=== PATIENT | female | born 1990 | race Caucasian/White ===

== ENCOUNTER → 2018-11-23 | Outpatient (CLI) | payer MEDICAID, OTHER ==
--- NOTE | 2018-11-23 15:14 | Diagnostic Imaging Report ---
INDICATION: survey. TECHNIQUE: Multiple real-time grayscale images were obtained over the gravid uterus. COMPARISON: None FINDINGS: There is a single live fetus in a cephalic presentation. heart rate was recorded at 149 beats per minute. Placenta is anterior. Amniotic fluid volume is normal. Cervical length is 4.8 cm. survey demonstrates kidneys, bladder and stomach to be unremarkable. Brain is unremarkable. There is a four-chamber heart. There is a three-vessel cord with normal insertion. spine is grossly unremarkable. Biometrical measurements are as follows: Biparietal 4.58 cm, age 19 weeks 6 days. Head circumference 16.40 cm, age 19 weeks 1 days. Abdominal circumference 13.99 cm, age 19 weeks 3 days. Femur length 2.95 cm, age 19 weeks 1 days. Sonographic estimate age: 19 weeks 3 days. Sonographic estimated date of delivery: 04/16/2019. Estimated Weight: 282 gm (+/- 41 gm). LMP percentile: 84%. heart rate: 149 beats per minute. number: 1 of 1. IMPRESSION: Single IUP approximately 19 weeks 3 days gestational age. The estimated date of confinement sonographically 04/16/2019. Dictated by: Dictated on workstation # [id number]
== END ==
LOC: RAD 14:02
PROVIDERS: ATTEND Obstetrics & Gynecology
DX: Z36.89 Encounter for other specified antenatal screening (principal); Z3A.19 19 weeks gestation of pregnancy
CPT/HCPCS: 76805

== ENCOUNTER 2019-04-17 14:49 | Outpatient (CLI) | payer OTHER, MEDICAID ==
[~2019-04-17] VITALS: Ht 165.1 cm; Wt 86.2 kg
--- NOTE | 2019-04-17 14:43 | NUR ---
HOLLI CORRIGAN presented to unit from Home with c/o POSSIBLE WATER BREAK. HOLLI CORRIGAN weighed, gowned, voided, and to bed. EFHM and TOCO applied, VS taken. HOLLI CORRIGAN oriented to bed controls, call light, TV, heat, and A/C controls.
[2019-04-17 15:00] VITALS: BP 144/94
--- NOTE | 2019-04-17 15:20 | NUR ---
Dr. Bellamy notified of patient's arrival, complaints, and exam. New orders received.
[2019-04-17] MEDS ORDERED: DIPH25CA79 PO (15:26)
[2019-04-17] MEDS ORDERED: ACET-2267 PO (15:26)
[2019-04-17] MEDS ORDERED: RANI75TA21 PO (15:26)
[2019-04-17] MEDS ORDERED: PREN1TAB79 PO (15:26)
--- NOTE | 2019-04-17 15:37 | NUR ---
Discharge instructions and medications reviewed with patient both written and verbally. Patient verbalizes understanding and questions answered.
--- NOTE | 2019-04-17 15:50 | NUR ---
Patient discharged at this time via ambulation. No signs or symptoms of distress noted.
--- NOTE | 2019-04-20 19:06 | Physician Query-Final Dx ---
Clinic Account Progress/Dx Physician Query: Please give diagnosis Date of Service Apr 17, 2019 at 14:49 RUI ORTEGA Apr 20, 2019 19:06
[2019-04-20] MEDS ORDERED: FERR325T18 PO (19:11)
[2019-04-20] MEDS ORDERED: IBUP-844 PO (19:11)
[2019-04-20] MEDS ORDERED: ACET-77 PO (19:11)
== END 2019-04-17 15:50 | disposition home or self-care (01) ==
LOC: WSo 14:49 → LDRP 14:49 → WSo 15:50
PROVIDERS: ATTEND Obstetrics & Gynecology
DX: O41.93X0 Disorder of amniotic fluid and membranes, unspecified, third trimester, not applicable or unspecified (principal); Z3A.39 39 weeks gestation of pregnancy
CPT/HCPCS: 99214

== ENCOUNTER 2019-04-19 09:53 | Outpatient (CLI) | payer OTHER, MEDICAID ==
[~2019-04-19] VITALS: Ht 165.1 cm; Wt 85.3 kg
--- NOTE | 2019-04-19 09:46 | NUR ---
HOLLI CORRIGAN presented to unit via AMBULATORY from HOME, accompanied by SO, with c/o . HOLLI CORRIGAN weighed, gowned, voided, and to bed. EFHM and TOCO applied, VS taken. HOLLI CORRIGAN oriented to bed controls, call light, TV, heat, and A/C controls.
[~2019-04-19 09:53] MED LIST: ACET-2267 PO; DIPH25CA79 PO; PREN1TAB79 PO; RANI75TA21 PO
[2019-04-19 10:00] VITALS: BP 140/83
--- NOTE | 2019-04-19 10:30 | NUR ---
DR HICKMAN IS OB ECONOMICS CONSULTANT TODAY. THIS RN CALLS DR HICKMAN WITH PT REPORT, BACKGROUND PT HX. , 39.4WK OF DR IVAN, CO UC Q 2-7 MIN, SVE /-1 WIH BLOODY SHOW, MEMBRANES INTACT AT THIS TIME. DR HICKMAN STATES THAT IT SOUNDS LIKE PT IS IN LABOR AND NEEDS TO BE ADMITTED, CALL PRIMARY OB DR. IVAN FOR ADMIT ORDERS.
--- NOTE | 2019-04-19 10:34 | NUR ---
DR IVAN CALLED BY THIS RN WITH PT REPORT. STATES THAT PT MAY BE ADMITTED WITH IV SALINE LOCKED, MAY WALK, AND EAT DURING LABOR. DR IVAN ASKED IF PT EVEN WANTS TO STAY TO LABOR AT [facility] OR AT HOME. THIS RN ASKS PT AND PT WANTS TO LABOR AT HOME. DR IVAN STATES SHE IS FINE WITH THAT. DR IVAN AND PT HAS PREVIOUSLY TALKED ABOUT PT LABORING AT HOME AND COMING IN WHEN UC ARE EVERY 3-[address] IVAN GIVES DISCHARGE ORDERS AND STATES SHE EXPECTS PT TO RETURN THIS EVENING FURTHER DILATED. PT DOES NOT PLAN ON AN EPIDURAL. WILL LABOR AT HOME PER DR IVAN ORDER/OKAY. DR IVAN STATES THAT PT'S MOTHER IS A MEAT HANGER. PT STATES HER MOTHER WILL BE HELPING HER LABOR AT HOME AND WILL COME IN WITH HER LATER THIS EVENING FOR DELIVERY. THIS RN STRONGLY DISCUSSES THE PLAN OF CARE WITH PT, WHEN TO COME IN, ETC, AND EDUCATES HEAVILY. THIS RN WILL BE HERE UNTIL 1900. PT VERBALIZES UNDERSTANDING OF TEACHINGS. PT LIVES 5 MIN AWAY FROM HOSPITAL. PT HAS DIRECT L&D PHONE NUMBER AND WILL CALL WITH QUESTIONS, CONCERNS, OR WHEN ON HER WAY BACK TO HOSPITAL FOR DELIVERY.
[2019-04-20] MEDS ORDERED: IBUP-844 PO (19:11)
[2019-04-20] MEDS ORDERED: ACET-77 PO (19:11)
[2019-04-20] MEDS ORDERED: FERR325T18 PO (19:11)
== END 2019-04-19 10:52 | disposition home or self-care (01) ==
LOC: WSo 09:53 → LDRP 09:54 → WSo 10:52
PROVIDERS: ATTEND Obstetrics & Gynecology
DX: O47.1 False labor at or after 37 completed weeks of gestation (principal); Z3A.39 39 weeks gestation of pregnancy
CPT/HCPCS: 99213

== ENCOUNTER 2019-04-19 21:56 | Inpatient (IN) | payer OTHER, MEDICAID ==
[~2019-04-19] VITALS: Ht 165.1 cm; Wt 85.3 kg
--- NOTE | 2019-04-19 22:00 | NUR ---
HOLLI CORRIGAN presented to unit via wheelchair from ED, accompanied by s.o., with c/o LABOR. HOLLI CORRIGAN weighed, gowned, voided, and to bed. EFHM and TOCO applied, VS taken. HOLLI CORRIGAN oriented to bed controls, call light, TV, heat, and A/C controls.
[2019-04-19 22:05] VITALS: BP 136/84
--- NOTE | 2019-04-19 22:20 | History & Physical-OB ---
OB - Chief Complaint & HPI Date/Time Date of Admission: Date of Admission: 04/19/19 Date seen by a Provider: Apr 19, 2019 Time Seen by a Provider: 22:30 Chief Complaint/History OB-Reason for Admission/Chief: Onset of Labor Hx : 1 Hx Para: 0 Expected Date of Delivery: Apr 22, 2019 Gestational Age in Weeks: 39 Gestational Age in Days: 4 Admission Nurse Assessment Rev: Yes History of Labs B+/- VDRL NR HIV - HBSAg - Hep C - Rub NI GBS - Allergies and Home Medications Allergies Coded Allergies: No Known Drug Allergies (Unverified , 04/17/19) Home Medications Vit W-Ca,Fe,FA(<1 mg) 1 Each Tablet, 1 EACH PO DAILY, (Reported) Patient Home Medication List Home Medication List Reviewed: Yes OB - History Hx of Present Ultrasounds: Normal mid trimester US Obstetrical Complications: None (had abnormal 1 hour but nornal 3 hour) Medical Complications: None Information Induced Hypertension: No Maternal Gestational Diabetes: No Hemorrhage: No Obstetrical History Hx : 1 Hx Para: 0 Hx Termination: No Patient Past Medical History NC Social History/Family History HIV/AIDS: No Recent Infectious Disease Expo: No Sexually Transmitted Disease: No Alcohol Use: Denies Use Smoking Cessation: Never smoker Immunizations Hepatitis A: No Hepatitis B: No Tetanus Booster (TDap): Less than 5yrs (01/11/19) Rubella: not immune RPR/VDRL: Negative GBS Status: Negative HBsAG: Negative OB - Admission Exam Physical Exam Lungs: Clear, Crackles Abdomen: Gravid Cervical Dilatation: 7cm Effacement: 100% Station: 0 Membranes: Intact Heart Rate: 130's Accelerations: Accelerations Present Decelerations: No Decelerations Short Term Variability: Present Glass Decorator Variability: Average (6-25) Contractions on Admission: < 5 Minutes Apart OB - Assessment/Plan/Diagnosis Assessment Assessment: active labor Admission Dx 39 week gestation in active labor Admission Status: Inpatient Order (span 2 midnights) Reason for Inpatient Admission: labor Plan Plan: Expectant Management Other Plan Peds - [place] Intermittent monitoring, heplock, ambulation, clear liquids. plan Discharge Diagnosis Diagnosis: Labor at 39 weeks GURJIT IVAN DO Apr 19, 2019 22:20
[2019-04-19 22:30] LABS: BASOPHILS % (AUTO) 0 % (0-10); EOSINOPHILS % (AUTO) 0 % (0-10); HEMATOCRIT 35 % (35-52); HEMOGLOBIN 12.3 G/DL (11.5-16.0); LYMPHOCYTES # (AUTO) 1.3 X 10^3 (1.0-4.0); LYMPHOCYTES % (AUTO) 7 % (12-44); MEAN CORPUSCULAR HEMOGLOBIN 31 PG (25-34); MEAN CORPUSCULAR HGB CONC 35 G/DL (32-36); MEAN CORPUSCULAR VOLUME 87 FL (80-99); MONOCYTES # (AUTO) 0.8 X 10^3 (0.0-1.0); MONOCYTES % (AUTO) 4 % (0-12); NEUTROPHILS # (AUTO) 16.6 X 10^3 (1.8-7.8); NEUTROPHILS % (AUTO) 89 % (42-75); PLATELET COUNT 239 10^3/uL (130-400); WHITE BLOOD COUNT 18.6 10^3/uL (4.3-11.0)
[2019-04-19] MEDS ORDERED: MINERAL OIL CONCENTRATE 99.9% 15 ML UDC TOP PRN (22:30)
[2019-04-20] VITALS (66 sets, daily range): BP systolic 105–180; BP diastolic 62–95
--- OUTSIDE RECORDS SUMMARY | 2019-04-20 00:23 | XMS REPORT ---
Author Author LARISSA BARFIELD [facility] eClinicalWorks Address Unknown Phone Unavailable Care Team Providers Care Order Control Clerk Blood Bank Name Role Phone LARISSA BARFIELD Unavailable Allergies No Known Allergies Problems Problem Type Condition Code Onset Dates Condition Status Problem Natural family planning Z30.02 Active Problem High risk sexual behavior Z72.51 Active Medications No Known Medications Results No Known Results Summary Purpose eClinicalWorks Submission
--- OUTSIDE RECORDS SUMMARY | 2019-04-20 00:23 | XMS REPORT ---
Author Author LARISSA BARFIELD [facility] eClinicalWorks Address Unknown Phone Unavailable Care Team Providers Care Hose Sprayer Name Role Phone LARISSA BARFIELD CP Unavailable Allergies No Known Allergies Problems Problem Type Condition Code Onset Dates Condition Status Problem Natural family planning Z30.02 Active Problem High risk sexual behavior Z72.51 Active Medications Medication Code System Code Instructions Start Date End Date Status Dosage Flagyl [facility] [address]-04 500 MG Orally 2 times a day Nov 02, 2015 Nov 09, 2015 1 tablet Results No Known Results Summary Purpose eClinicalWorks Submission
--- OUTSIDE RECORDS SUMMARY | 2019-04-20 00:23 | XMS REPORT ---
Author Author LARISSA BARFIELD [facility] eClinicalWorks Address Unknown Phone Unavailable Care Team Providers Care Hand Bulldozer Name Role Phone LARISSA BARFIELD Unavailable Allergies No Known Allergies Problems Problem Type Condition Code Onset Dates Condition Status Problem Natural family planning Z30.02 Active Problem High risk sexual behavior Z72.51 Active Medications No Known Medications Results No Known Results Summary Purpose eClinicalWorks Submission
--- OUTSIDE RECORDS SUMMARY | 2019-04-20 00:23 | XMS REPORT ---
Author Author [facility] Medical Staff Organization [facility] Address [address] [place], [place] [id number] Phone [phone] Care Team Providers Care Product Technology Scientist Name Role Phone TARA RUSH MD PP [phone] Summary purpose TRANSITION OF CARE AUTO GENERATION Chief Complaint and Reason for Visit No authorized Reason for Visit (Admitting Diagnosis) is available for this visit . Problem list No authorized problems tracked for continuity of care are available for this vis it. Encounters No authorized problems tracked for encounter diagnoses are available for this vi sit. Medications No medications recorded for this patient visit Allergies, adverse reactions, alerts No allergy information is available for this patient. Immunizations No immunizations recorded for this patient visit Relevant diagnostic tests and/or laboratory data No authorized results are available for this patient visit History of procedures No procedures recorded for this patient visit. Functional status No functional or cognitive status observations are available for this visit. Vital signs No authorized vital signs are available for this visit. Social history No Social History or smoking status observations were recorded for this visit. ( Unknown if ever smoked.) Treatment Plan No treatment plan text is available for this visit. Hospital discharge instructions No discharge instruction text is available for this visit.
--- OUTSIDE RECORDS SUMMARY | 2019-04-20 00:23 | XMS REPORT ---
Author Author LARISSA BARFIELD [facility] eClinicalWorks Address Unknown Phone Unavailable Care Team Providers Care Nuclear Physician Name Role Phone LARISSA BARFIELD Unavailable Allergies, Adverse Reactions, Alerts Substance Reaction Event Type N.K.D.A. Info Not Available Non Drug Allergy Problems Problem Type Condition Code Onset Dates Condition Status Assessment Unprotected sexual intercourse Z72.51 Active Problem Natural family planning Z30.02 Active Assessment Routine screening for STI (sexually transmitted infection) Z11.3 Active Problem High risk sexual behavior Z72.51 Active Assessment Screening for malignant neoplasm of cervix Z12.4 Active Assessment Natural family planning Z30.02 Active Assessment Vaginal lesion N89.8 Active Assessment High risk sexual behavior Z72.51 Active Medications No Known Medications Procedures Procedure Coding System Code Date Office Visit, New Pt., Level 3 CPT-4 51695 Oct 26, 2015 TRICHOMONAS VAGIN, DIR PROBE CPT-4 25349 Oct 26, 2015 CULTURE, BACTERIA, OTHER CPT-4 69897 Oct 26, 2015 No Charge CPT-4 10082 Oct 26, 2015 SPECIMEN HANDLING CPT-4 20565 Oct 26, 2015 VIRUS INOCULATION, SHELL VIA CPT-4 75878 Oct 26, 2015 VENIPUNCT, ROUTINE* CPT-4 31368 Oct 26, 2015 HERPES SIMPLEX TYPE 2 CPT-4 84178 Oct 26, 2015 ACUTE HEPATITIS PANEL CPT-4 48762 Oct 26, 2015 TRENT VIRUS ISOLATE, HSV CPT-4 58358 Oct 26, 2015 HERPES SIMPLEX TEST CPT-4 85210 Oct 26, 2015 Vital Signs Date/Time: Oct 26, 2015 Temperature 98.6 F Weight 150.7 lbs Height 64 in BMI 25.86 Index Blood Pressure Diastolic 68 mmHg Blood Pressure Systolic 117 mmHg Cardiac Monitoring Heart Rate 76 bpm Results Name Result Date Reference Range Unit Abnormality Flag ROUTINE VENIPUNCTURE Summary Purpose eClinicalWorks Submission
--- OUTSIDE RECORDS SUMMARY | 2019-04-20 00:23 | XMS REPORT | Continuity of Care Document ---
Demographics x Preferred Language Unknown Marital Status Unknown Nondenominational Affiliation Unknown Race Unknown Ethnic Group Unknown Author Organization Unknown Address Unknown Allergies There is no data. Medications There is no data. Problems There is no data. Procedures There is no data. Results There is no data. Encounters ACCT No. Visit Date/Time Discharge Status Pt. Type Provider Facility Loc./Unit Complaint [id number] 11/02/2015 21:33:00 11/02/2015 21:33:00 DIS Outpatient TARA RUSH [facility] EMR
[2019-04-20] MEDS ORDERED: BUTORPHANOL INJ 2 MG/ML (STADOL) VIAL ONE (01:16)
[2019-04-20] MEDS ORDERED: D5 LR IV SOLUTION 1,000 ML IV ONE (01:16)
[2019-04-20] MEDS ORDERED: BUTORPHANOL INJ 2 MG/ML (STADOL) VIAL IV ONE ×2 (01:30→03:30)
[2019-04-20] MEDS ORDERED: LACTATED RINGERS 1,000 ML IV SCH ×2 (01:30→06:32)
[2019-04-20] MEDS: D5 LR IV SOLUTION 1,000 ML IV SCH ×3 (01:36→17:20)
[2019-04-20] MEDS ORDERED: SUFENTA 0.6MCG/ML BUPIVA 0.125 100 ML ONE (05:15)
[2019-04-20] MEDS ORDERED: CATHETER FLUSH 10 ML SYR IV SCH ×2 (06:00→22:00)
[2019-04-20] MEDS ORDERED: fentaNYL INJECTION 100 MCG/2 ML AMP ONE (06:07)
[2019-04-20] MEDS: EPIDURAL (SUFENTA 0.6MCG/ML BUPIVA 0.125%) 100 ML BAG EPI PRN ×3 (06:28→13:37)
[2019-04-20] MEDS ORDERED: LIDOCAINE PF 2% 5 ML (XYLOCAINE) VIAL ONE (06:32)
[2019-04-20] MEDS ORDERED: BUPIVACAINE 0.25% 30 ML (SENSORCAINE) VIAL ONE (06:32)
[2019-04-20] MEDS ORDERED: diphenhydrAMINE 50 MG/ML INJ (BENADRYL) IV PRN (06:45)
[2019-04-20] MEDS ORDERED: ONDANSETRON 4 MG/2 ML (SDV) Z0FRAN IV PRN (06:45)
[2019-04-20] MEDS ORDERED: NALOXONE 0.4 MG/ML 1 ML (NARCAN) VIAL IV PRN (06:45)
--- NOTE | 2019-04-20 07:00 | NUR ---
REPORT FROM CELESTINO ROBLEDO
[2019-04-20] MEDS ORDERED: LIDOCAINE/EPI 2% 1:200,00 (XYLOCAINE) 10 ML VIAL ONE (07:24)
[2019-04-20] MEDS ORDERED: OXYTOCIN/NORMAL SALINE 500 ML IV ONE (07:24)
--- NOTE | 2019-04-20 09:44 | NUR ---
REPORT TO LISA ROBLEDO.
--- NOTE | 2019-04-20 09:44 | NUR ---
report received from MEENA Treadwell. care assumed of pt.
--- NOTE | 2019-04-20 10:52 | NUR ---
Josesito Castaneda called. update given on previous SVE. order received for pitocin per protocol
[2019-04-20] MEDS ORDERED: OXYTOCIN/NORMAL SALINE 500 ML IV SCH ×2 (10:55→18:57)
--- NOTE | 2019-04-20 13:49 | NUR ---
report given to Laura RN
[2019-04-20] MEDS ORDERED: MISOPROSTOL 200 MCG (CYTOTEC) TABLET ONE (18:37)
[2019-04-20] MEDS ORDERED: TETANUS,DIPTH,PERTUSS P/F (BOOSTRIX) 0.5 ML VIAL IM ONE (19:00)
[2019-04-20] MEDS ORDERED: WITCH HAZEL(TUCKS) 40 EA JAR TOP PRN (19:00)
[2019-04-20] MEDS ORDERED: BENZOCAINE/MENTHOL (DERMOPLAST) 56 ML CAN TP PRN (19:00)
[2019-04-20] MEDS ORDERED: MEASLES,MUMPS,RUBELLA 1 EA INJ SQ ONE (19:00)
--- NOTE | 2019-04-20 19:00 | NUR ---
REFER TO LABOR FLOW SHEET.
--- NOTE | 2019-04-20 19:07 | OB Labor & Delivery Record ---
Vag Delivery Note Vag Delivery Note Date of Delivery: 04/20/19 Preoperative Diagnosis: Kyle Edwards is a 28 /Para 1 / 0,Gestational Age 39 5/7 weeks in spontaneous labor Postoperative Diagnosis: Same Surgeon: GURJIT IVAN Anesthesia: epidural Delivery Type: vaginal Findings: Viable male nfant, apgars , weight pending Lacerations: left vaginal sulcus Intact placenta with 3 vessel cord. No nuchal cord, there was a cord wrapped around the left lower leg and a mild (< 10 sec) shoulder dystocia resolved with Tomasa and suprapubic pressure. Cytotec 800 mcg placed for hemorrhage prophylaxis Estimated Blood Loss: 500 ml Complications: None Condition: Stable Description of Procedure: The patient is a 28 year old female who presented in spontaneous labor. she was 7 cm dilated when she presentd on 04/19 at 1999. She was admitted and informed consent was obtained. Her labor course was remarkable for slow progress/arrest of dilation. Arom was accomplished and then pitocin augmentation. She progressed to complete dilatation and began to push. She was then set up for delivery. The 's head was delivered atraumatically in theLOA position. The shoulders and remainder of the infant's body were then delivered without difficulty. See above. Upon delivery, the head was held below the level of the perineum and the mouth and nares were bulb suctioned. The cord was doubly clamped and cut and the was handed off to the pediatric staff. An intact placenta with 3-vessel cord delivered via Ludy and there was found to be minimal bleeding.~ Vigorous fundal massage was performed and the fundus was found to be firm. IV oxytocin was given. Examination of the vagina and perineum revealed a left vaginal sulcus laceration repaired in the usual fashion with 3-0 vicryl suture. she then began having brisk vaginal bleeding that was controlled with IV oxytocin, fundal massage and 800 mcg of rectal misoprostol. Following the repair, sponge, instrument and needle counts were correct. Mom and baby were both in stable condition in the labor suite. Vitals - Labs Vital Signs - I&O Vital Signs Date Time Temp Pulse Resp B/P (MAP) Pulse Ox O2 Delivery O2 Flow Rate FiO2 04/20/19 15:15 96 18 98 Room Air 04/20/19 15:00 99.4 107 18 124/69 (87) 98 Room Air 04/20/19 14:45 92 18 126/77 (93) 98 Room Air 04/20/19 14:30 93 18 98 Room Air 04/20/19 14:15 94 18 135/80 (98) 97 Room Air 04/20/19 14:00 92 18 134/79 (97) 96 Room Air 04/20/19 13:45 95 18 98 Room Air 04/20/19 13:40 97.8 04/20/19 13:30 96 18 136/84 (101) 98 Room Air 04/20/19 13:15 93 18 125/77 (93) 97 Room Air 04/20/19 13:00 92 18 127/84 (98) 98 Room Air 04/20/19 12:45 91 18 127/80 (96) 98 Room Air 04/20/19 12:30 93 18 126/79 (95) 97 Room Air 04/20/19 12:15 103 18 118/75 (89) 97 Room Air 04/20/19 12:00 103 18 118/75 (89) 97 Room Air 04/20/19 11:45 93 18 125/78 (94) Room Air 04/20/19 11:30 91 18 126/77 (93) Room Air 04/20/19 11:15 93 18 121/74 (90) Room Air 04/20/19 11:00 97 18 126/80 (95) Room Air 04/20/19 10:45 105 18 122/80 (94) Room Air 04/20/19 10:30 98 18 128/82 (97) Room Air 04/20/19 10:15 98.7 98 18 118/80 (93) Room Air 04/20/19 10:00 107 18 130/88 (102) Room Air 04/20/19 09:45 96 18 124/71 (88) Room Air 04/20/19 09:30 93 18 124/78 (93) 98 04/20/19 09:15 96 18 126/78 (94) 98 04/20/19 09:00 103 18 125/78 (94) 98 04/20/19 08:45 105 18 129/79 (96) 98 04/20/19 08:30 89 18 114/69 (84) 98 04/20/19 08:15 90 18 118/74 (89) 98 04/20/19 08:00 93 18 119/74 (89) 98 04/20/19 07:45 89 18 122/76 (91) 98 04/20/19 07:30 98 18 134/81 (98) 98 04/20/19 07:15 97.9 95 18 120/78 (92) 96 Room Air 04/20/19 07:00 89 18 125/78 (94) 98 04/20/19 06:55 99 18 125/74 (91) 98 04/20/19 06:50 103 18 127/78 (94) 98 04/20/19 06:45 103 18 133/84 (100) 98 04/20/19 06:40 106 18 127/78 (94) 98 04/20/19 06:35 101 18 131/78 (95) 97 04/20/19 06:30 105 18 126/73 (90) 98 04/20/19 06:25 104 18 139/87 (104) 96 04/20/19 06:20 93 18 136/85 (102) 98 04/20/19 06:15 110 18 143/92 (109) 98 04/20/19 06:10 103 18 133/89 (104) 100 04/20/19 04:20 98.5 90 18 133/80 (97) 04/20/19 03:00 94 18 134/82 (99) 04/20/19 01:00 97.7 92 18 137/95 (109) 04/19/19 22:05 98.8 107 18 136/84 (101) Labs Laboratory Tests 04/19/19 22:15: White Blood Count 18.6H, Red Blood Count 3.99L, Hemoglobin 12.3, Hematocrit 35, Mean Corpuscular Volume 87, Mean Corpuscular Hemoglobin 31, Mean Corpuscular Hemoglobin Concent 35, Red Cell Distribution Width 13.0, Platelet Count 239, Mean Platelet Volume 9.0, Neutrophils (%) (Auto) 89H, Lymphocytes (%) (Auto) 7L, Monocytes (%) (Auto) 4, Eosinophils (%) (Auto) 0, Basophils (%) (Auto) 0, Neutrophils # (Auto) 16.6H, Lymphocytes # (Auto) 1.3, Monocytes # (Auto) 0.8, Eosinophils # (Auto) 0.0, Basophils # (Auto) 0.0 GURJIT IVAN DO Apr 20, 2019 19:07
[2019-04-20] MEDS ORDERED: ACET-77 PO (19:11)
[2019-04-20] MEDS ORDERED: IBUP-844 PO (19:11)
[2019-04-20] MEDS ORDERED: FERR325T18 PO (19:11)
--- NOTE | 2019-04-20 19:13 | Discharge Inst-Women's Service ---
Discharge Inst-Women's Serv Depart Medication/Instructions New, Converted or Re-Newed RX: Call to Patients Pharmacy Final Diagnosis spontaneous labor vaginal delivery epidural Consults/Follow Up Additional Follow Up: Yes (2 weeks and 6 weeks) Activity Activity: Activity as Tolerated Driving Instructions: You May Drive NO SMOKING: NO SMOKING Nothing Inside Vagina: No Douching, No [place], No Tampons Diet Discharge Diet: No Restrictions Symptoms to Report to : Swelling Increased, Bleeding Excessive, Pain Increased, Fever Over 101 Degrees F, Vaginal Bleeding Increase, Cramps in Feet or Legs, Vaginal Discharge Foul For Any Problems or Questions: Contact Your Physician Skin/Wound Care Bathing Instructions: GURJIT Ashraf DO Apr 20, 2019 19:13
[2019-04-20] MEDS: IBUPROFEN 600 MG (MOTRIN) TAB PO SCH (20:04)
--- NOTE | 2019-04-20 21:15 | NUR ---
PT ASSISTED UP TO BATHROOM. UNABLE TO VOID. PERICARE COMPLETED. GAY WELL. MOVED TO ROOM AT THIS TIME.
[2019-04-20] MEDS ORDERED: ACETAMINOPHEN 500 MG TAB (TYLENOL) PO PRN (21:30)
[2019-04-20] MEDS: ACETAMINOPHEN 500 MG TAB (TYLENOL) PO SCH (21:33)
[2019-04-21 03:30] VITALS: BP 121/72
--- NOTE | 2019-04-21 03:45 | NUR ---
PT AWAKENED UPON ENTERING ROOM WITH BABY. INFANT TO BREASTFEED AT THIS TIME.
[2019-04-21 06:50] LABS: BASOPHILS % (AUTO) 0 % (0-10); EOSINOPHILS % (AUTO) 0 % (0-10); HEMATOCRIT 27 % (35-52); HEMOGLOBIN 9.1 G/DL (11.5-16.0); LYMPHOCYTES # (AUTO) 1.8 X 10^3 (1.0-4.0); LYMPHOCYTES % (AUTO) 10 % (12-44); MEAN CORPUSCULAR HEMOGLOBIN 31 PG (25-34); MEAN CORPUSCULAR HGB CONC 34 G/DL (32-36); MEAN CORPUSCULAR VOLUME 89 FL (80-99); MEAN PLATELET VOLUME 8.6 FL (7.4-10.4); MONOCYTES % (AUTO) 5 % (0-12); NEUTROPHILS % (AUTO) 84 % (42-75); PLATELET COUNT 222 10^3/uL (130-400); RED CELL DISTRIBUTION WIDTH 13.5 % (10.0-14.5); WHITE BLOOD COUNT 17.7 10^3/uL (4.3-11.0)
--- NOTE | 2019-04-21 07:59 | Anesthesia-Regional Post-Op ---
Regional Patient Condition Mental Status: Alert, Oriented x3 Circulation: Same as Pre-Op Headache: Absent Sensation: Full Recovery Motor Block: Absent Post Op Complications Complications None Follow Up Care/Instructions Patient Instructions None needed. Anesthesia/Patient Condition Patient is doing well, no complaints, stable vital signs, no apparent adverse anesthesia problems. No complications reported per nursing. MARK ANTHONY LINCOLN CRNA Apr 21, 2019 07:59
--- NOTE | 2019-04-21 08:02 | Postpartum Progress Note ---
Note Note Day # 1 Subjective: Patient is without complaints. Ambulating, voiding. Tolerating a regular diet without nausea or vomiting. Normal lochia. Pain is well controlled with oral pain medications. Objective: Physical Exam: General - Alert and oriented, no apparent distress Abdomen - Soft, appropriately tender to palpation, non-distended, fundus firm at umbilicus Extremities - no edema, negative Aniyah's bilaterally Assessment: PPD 1 NVD Acute blood loss anemia Plan: Routine care. Encourage breast feeding. Encourage ambulation. Ferrous sulfate supplementation. Plan for discharge Vitals - Labs Vital Signs - I&O Vital Signs Date Time Temp Pulse Resp B/P (MAP) Pulse Ox O2 Delivery O2 Flow Rate FiO2 04/21/19 03:30 98.4 90 16 121/72 (88) Room Air 04/20/19 23:45 99.0 98 16 114/64 (81) Room Air 04/20/19 21:33 99.0 04/20/19 20:45 122 16 119/75 (90) Room Air 04/20/19 20:30 111 16 118/77 (91) Room Air 04/20/19 20:15 106 16 115/73 (87) Room Air 04/20/19 20:04 100.0 04/20/19 20:00 100.0 122 16 116/78 (91) Room Air 04/20/19 19:45 136 16 105/62 (76) Room Air 04/20/19 19:30 134 18 134/78 (96) Room Air 04/20/19 19:15 123 18 127/69 (88) Room Air 04/20/19 19:00 99.6 125 18 143/70 (94) Room Air 04/20/19 18:32 137 18 180/95 (123) Room Air 04/20/19 18:30 107 18 143/86 (105) Room Air 04/20/19 18:15 Room Air 04/20/19 18:00 98.8 98 18 124/77 (93) 99 Room Air 04/20/19 17:45 98.8 101 18 131/83 (99) 98 Room Air 04/20/19 17:30 96 18 123/76 (92) 99 Room Air 04/20/19 17:15 98 18 122/78 (93) 98 Room Air 04/20/19 17:00 93 18 109/64 (79) 97 Room Air 04/20/19 16:45 90 18 124/81 (95) 97 Room Air 04/20/19 16:30 96 18 130/91 (104) 97 Room Air 04/20/19 16:15 100 18 135/84 (101) 99 Room Air 04/20/19 16:00 103 18 129/87 (101) 97 Room Air 04/20/19 15:45 102 18 135/88 (104) 98 Room Air 04/20/19 15:30 98.9 102 18 133/94 (107) 98 Room Air 04/20/19 15:15 96 18 98 Room Air 04/20/19 15:00 99.4 107 18 124/69 (87) 98 Room Air 04/20/19 14:45 92 18 126/77 (93) 98 Room Air 04/20/19 14:30 93 18 98 Room Air 04/20/19 14:15 94 18 135/80 (98) 97 Room Air 04/20/19 14:00 92 18 134/79 (97) 96 Room Air 04/20/19 13:45 95 18 98 Room Air 04/20/19 13:40 97.8 04/20/19 13:30 96 18 136/84 (101) 98 Room Air 04/20/19 13:15 93 18 125/77 (93) 97 Room Air 04/20/19 13:00 92 18 127/84 (98) 98 Room Air 04/20/19 12:45 91 18 127/80 (96) 98 Room Air 04/20/19 12:30 93 18 126/79 (95) 97 Room Air 04/20/19 12:15 103 18 118/75 (89) 97 Room Air 04/20/19 12:00 103 18 118/75 (89) 97 Room Air 04/20/19 11:45 93 18 125/78 (94) Room Air 04/20/19 11:30 91 18 126/77 (93) Room Air 04/20/19 11:15 93 18 121/74 (90) Room Air 04/20/19 11:00 97 18 126/80 (95) Room Air 04/20/19 10:45 105 18 122/80 (94) Room Air 04/20/19 10:30 98 18 128/82 (97) Room Air 04/20/19 10:15 98.7 98 18 118/80 (93) Room Air 04/20/19 10:00 107 18 130/88 (102) Room Air 04/20/19 09:45 96 18 124/71 (88) Room Air 04/20/19 09:30 93 18 124/78 (93) 98 04/20/19 09:15 96 18 126/78 (94) 98 04/20/19 09:00 103 18 125/78 (94) 98 04/20/19 08:45 105 18 129/79 (96) 98 04/20/19 08:30 89 18 114/69 (84) 98 04/20/19 08:15 90 18 118/74 (89) 98 I & O 04/21/19 07:00 Intake Total 1000 ml Balance 1000 ml Labs Laboratory Tests 04/21/19 06:35: White Blood Count 17.7H, Red Blood Count 2.98L, Hemoglobin 9.1#L, Hematocrit 27L , Mean Corpuscular Volume 89, Mean Corpuscular Hemoglobin 31, Mean Corpuscular Hemoglobin Concent 34, Red Cell Distribution Width 13.5, Platelet Count 222, Mean Platelet Volume 8.6, Neutrophils (%) (Auto) 84H, Lymphocytes (%) (Auto) 10L , Monocytes (%) (Auto) 5, Eosinophils (%) (Auto) 0, Basophils (%) (Auto) 0, Neutrophils # (Auto) 15.0H, Lymphocytes # (Auto) 1.8, Monocytes # (Auto) 1.0, Eosinophils # (Auto) 0.0, Basophils # (Auto) 0.0 JAYCEE SNOW DO Apr 21, 2019 08:02
[2019-04-21 10:17] VITALS: BP 111/70
[2019-04-21] MEDS: PRENATAL VITAMIN 1 EA TAB PO SCH (10:19)
[2019-04-21] MEDS: FERROUS SULF 325 MG (IRON) TAB PO SCH (10:19)
[2019-04-21] MEDS: ACETAMINOPHEN 500 MG TAB (TYLENOL) PO SCH ×2 (10:20→20:04)
[2019-04-21] MEDS: IBUPROFEN 600 MG (MOTRIN) TAB PO SCH ×2 (10:20→20:04)
[2019-04-21] MEDS: DOCUSATE SODIUM 100 MG (COLACE) CAP PO SCH ×2 (10:23→20:04)
[2019-04-21 16:40] VITALS: BP_SYST 110; BP_SYST 98; BP_DIAS 62; BP_DIAS 69
[2019-04-21 20:04] VITALS: BP 122/69
[2019-04-22 02:38] VITALS: BP 115/57
[2019-04-22] MEDS: IBUPROFEN 600 MG (MOTRIN) TAB PO SCH ×3 (02:38→15:00)
[2019-04-22] MEDS: ACETAMINOPHEN 500 MG TAB (TYLENOL) PO SCH ×2 (04:12→13:01)
--- NOTE | 2019-04-22 07:29 | Postpartum Progress Note ---
Note Note Day # 2 Subjective: Patient is without complaints. Ambulating, voiding. Tolerating a regular diet without nausea or vomiting. Normal lochia. Pain is well controlled with oral pain medications. Objective: Physical Exam: General - Alert and oriented, no apparent distress Abdomen - Soft, appropriately tender to palpation, non-distended, fundus firm at umbilicus Extremities - no edema, negative Aniyah's bilaterally Assessment: PPD 2 NVD Plan: Routine care. Encourage breast feeding. Encourage ambulation. Ferrous sulfate supplementation. Plan for discharge today Vitals - Labs Vital Signs - I&O Vital Signs Date Time Temp Pulse Resp B/P (MAP) Pulse Ox O2 Delivery O2 Flow Rate FiO2 04/22/19 02:38 97.9 83 16 115/57 (76) 98 Room Air 04/21/19 20:04 97.9 93 16 122/69 (86) 97 Room Air 04/21/19 16:40 98.8 88 16 110/69 (83) 97 Room Air 04/21/19 10:17 98.0 93 16 111/70 (84) 98 Room Air JAYCEE SNOW DO Apr 22, 2019 07:29
[2019-04-22] MEDS: FERROUS SULF 325 MG (IRON) TAB PO SCH (09:04)
[2019-04-22] MEDS: PRENATAL VITAMIN 1 EA TAB PO SCH (09:04)
[2019-04-22] MEDS: DOCUSATE SODIUM 100 MG (COLACE) CAP PO SCH (09:04)
--- NOTE | 2019-04-22 09:10 | NUR ---
PT . MEDS GIVEN PO; SEE EMAR FOR FURTHER. SPRITE PROVIDED PER REQUEST. WILL RETURN AT A LATER TIME FOR VS AND ASSESSMENT.
[2019-04-22] MEDS ORDERED: MEASLES,MUMPS,RUBELLA 1 EA INJ ONE (11:12)
[2019-04-22 11:20] VITALS: BP 122/76
--- NOTE | 2019-04-22 11:30 | NUR ---
PT IN BED, WATCHING TV. S/O AND AT THE BEDSIDE. VS OBTAINED. INITIAL SHIFT ASSESSMENT COMPLETED; SEE INTERVENTION FOR FURTHER.
--- NOTE | 2019-04-22 11:39 | NUR ---
DISCHARGE PAPERS PROVIDED AND REVIEWED WITH PT, PT VERBALIZES UNDERSTANDING AND DENIES ANY QUESTIONS AT THIS TIME. PAPER SIGNED.
--- NOTE | 2019-04-22 11:51 | NUR ---
RX'S X3 CALLED INTO [facility] AT THIS TIME.
--- NOTE | 2019-04-22 13:01 | NUR ---
PT LYING IN BED, INFANT. VOICES THAT SHE JUST WOKE UP FROM A NAP. TYLENOL GIVEN PO; SEE EMAR FOR FURTHER. S/O ORDERING THEIR STORK MEAL. NO FURTHER NEEDS VOICED.
--- NOTE | 2019-04-22 15:10 | NUR ---
PT DISCHARGED FROM -311 TO PERSONAL AUTO VIA AMBULATORY IN STABLE CONDITION ACC BY S/O AND THIS RN.
== END 2019-04-22 15:10 | disposition home or self-care (01) | DRG 806 ==
LOC: LDRP 21:56 → WSo 21:56 → LDRP 22:11
PROVIDERS: ADMIT Obstetrics & Gynecology; ATTEND Obstetrics & Gynecology
PROC: 10E0XZZ Delivery of Products of Conception, External Approach (ICD-10-PCS; principal; 2019-04-20)
PROC: 0UQGXZZ Repair Vagina, External Approach (ICD-10-PCS; 2019-04-20)
DX: O66.0 Obstructed labor due to shoulder dystocia (principal); O71.4 Obstetric high vaginal laceration alone; O72.1 Other immediate postpartum hemorrhage; O69.82X0 Labor and delivery complicated by other cord entanglement, without compression, not applicable or unspecified; O90.81 Anemia of the puerperium; D62 Acute posthemorrhagic anemia; Z3A.39 39 weeks gestation of pregnancy; Z37.0 Single live birth; Z23 Encounter for immunization
CPT/HCPCS: 36415; 85025; 86850; 86900; 86901; 90707; 99212

== ENCOUNTER → 2019-06-17 | Outpatient (CLI) | payer MEDICAID, OTHER ==
[~2019-06-17] MED LIST changes: +ACET-77 PO; +FERR325T18 PO; +IBUP-844 PO; +RANI-324 PO; -RANI75TA21 PO
--- NOTE | 2019-06-17 18:11 | Diagnostic Imaging Report ---
INDICATION: bleeding. EXAMINATION: Pelvic sonography was performed with transabdominal and transvaginal views. FINDINGS: The uterus measures 7.9 x 4.7 x 4.2 cm. Endometrium measures 7 mm in thickness and appears fairly homogeneous with no significant hypervascularity or sonographic evidence of retained products. There is a trace of free fluid in the cul-de-sac. Both ovaries appear unremarkable with the right measuring 3.0 x 2.8 x 1.5 cm and the left measuring 3.3 x 2.4 x 1.9 cm. IMPRESSION: A trace of free fluid is noted. Both ovaries appear unremarkable. The uterus appears unremarkable with no overt sonographic evidence of retained products of conception. Dictated by: Dictated on workstation # [id number]
== END ==
LOC: RAD 15:01
PROVIDERS: ATTEND Obstetrics & Gynecology
DX: O72.1 Other immediate postpartum hemorrhage (principal)
CPT/HCPCS: 76830; 76856